=== PATIENT | male | born 1990 | race Caucasian/White ===

== ENCOUNTER 2024-03-02 10:58 | Emergency (ER) | payer BC, OTHER, SELFPAY ==
[2024-03-02 11:16] VITALS: BP 153/91; PULSE 85; RESP 18; TEMP 37; O2SAT 97; BMI 28.2
--- NOTE | 2024-03-02 11:22 | ED_ITS ---
HPI - Extremity Injury (Lower) <Mary London PA-C - Last Filed: 03/02/24 13:46> General Chief Complaint: Extremity Injury, Lower Stated Complaint: poss broken ankle per pt Time Seen by Provider: 03/02/24 11:09 Source: patient Mode of arrival: Ambulatory History of Present Illness HPI Narrative: This is a previously healthy 34-year-old male presenting with concern for possible left ankle fracture. 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 He states he felt and heard a pop and his partner who was 20 ft away states she also heard a pop. His partner states that he did a tuck and roll and did go down to the ground. He denies any other injuries from this but states since that time he has had pain with putting weight on the area. They elevated it and iced it for about 4 hours yesterday evening, in the middle of the night when he got up to use the bathroom he states he had a lot of pain with any weight-bearing and also felt nauseous. He has been wearing a lace-up ankle brace and staying off of it using a wheeled scooter. He has not taken anything for pain today, denies numbness or tingling of the ankle, denies any previous surgery or fracture at this site. Review of Systems <Mary London PA-C - Last Filed: 03/02/24 13:46> Review of Systems Narrative: See HPI Patient History <Mary London PA-C - Last Filed: 03/02/24 13:46> Social History Smoking Status: Never smoker Smoking Status: Never smoker alcohol intake frequency: a few times a week Alcohol type: beer Substance Use Type: does not use Exam <Mary London PA-C - Last Filed: 03/02/24 13:46> Narrative Exam Narrative: GENERAL: [34] year old patient appears stated age. Well-developed patient, in mild distress. HEAD: Atraumatic. Normocephalic. EYES: Pupils equal round and reactive. Extraocular motions intact. No scleral icterus. No injection or drainage. ENT: Nose without bleeding, purulent drainage. Throat without erythema, tonsillar hypertrophy or exudate. Airway patent. NECK: Trachea midline. Non tender RESPIRATORY: No increased work of breathing or respiratory distress EXTREMITIES: There is moderate swelling and tenderness of the lateral malleolus of the left ankle. Range of motion of the left ankle is reduced 2nd to pain and swelling. There is no tenderness of the proximal or mid fibula, there is no bony tenderness of the tarsals or metatarsals. Cap refill is less than 2 seconds, dorsalis pedis and posterior tibialis pulses intact 2+. No edema or joint tenderness. NEURO: AOx3. SKIN: No rash or erythema of visible areas Initial Vital Signs Initial Vital Signs: Vital Signs Temperature 98.6 F 03/02/24 11:16 Pulse Rate 85 03/02/24 11:16 Respiratory Rate 18 03/02/24 11:16 Blood Pressure 153/91 H 03/02/24 11:16 Pulse Oximetry 97 03/02/24 11:16 Oxygen Delivery Method Room Air 03/02/24 11:16 <Stephane Araya DO - Last Filed: 03/02/24 14:02> Initial Vital Signs Initial Vital Signs: Vital Signs Temperature 98.6 F 03/02/24 11:16 Pulse Rate 85 03/02/24 11:16 Respiratory Rate 18 03/02/24 11:16 Blood Pressure 153/91 H 03/02/24 11:16 Pulse Oximetry 97 03/02/24 11:16 Oxygen Delivery Method Room Air 03/02/24 11:16 Course <Mary London PA-C - Last Filed: 03/02/24 13:46> Orders Ordered: ED Orders 03/02/24 11:21 XR ankle LT min 3V Stat Discontinued Medications Ketorolac Tromethamine (Ketorolac 30 Mg/Ml Vial) 30 mg IM NOW ONE Stop: 03/02/24 12:23 Last Admin: 03/02/24 12:37 Dose: 30 mg Documented By: SB Vital Signs Vital signs: Vital Signs - 8 hr 03/02/24 11:16 Temperature 98.6 F Pulse Rate 85 Respiratory Rate 18 Blood Pressure 153/91 H Pulse Oximetry 97 Oxygen Delivery Method Room Air <DO John Forrest Last Filed: 03/02/24 14:02> Orders Ordered: ED Orders 03/02/24 11:21 XR ankle LT min 3V Stat Discontinued Medications Ketorolac Tromethamine (Ketorolac 30 Mg/Ml Vial) 30 mg IM NOW ONE Stop: 03/02/24 12:23 Last Admin: 03/02/24 12:37 Dose: 30 mg Documented By: JAMA Vital Signs Vital signs: Vital Signs - 8 hr 03/02/24 11:16 Temperature 98.6 F Pulse Rate 85 Respiratory Rate 18 Blood Pressure 153/91 H Pulse Oximetry 97 Oxygen Delivery Method Room Air MDM - Extremity Injury (Lower) <Mary London PA-C - Last Filed: 03/02/24 13:46> Differential Diagnosis Differential diagnosis: Likely ankle sprain and strain and ankle fracture Medical Records Attestation: I reviewed the patient's medical records. Imaging Data Extremity x-ray #1: My Impression: Agree with Radiology interpretation Radiologist's Impression: [address] [address] XRay Report Signed Patient: Leodan Magana MR#: [id number] : 1990 Acct:[id number] Age/Sex: 34 / M Date of Service: 03/02/24 Loc: ED Accession Number: [id number] Procedure: XR ankle LT min 3V Ordering Provider: Mary London P.A-C PROCEDURE: XR ANKLE LT MIN 3V INDICATIONS: fall TECHNIQUE: 3 views of the ankle were acquired. COMPARISON: None. FINDINGS: Bones: No fractures or dislocations. Ankle mortise is normally aligned. No suspicious bony lesions. Soft tissues: No tibiotalar joint effusion. Achilles tendon appears normal. Lateral soft tissue swelling. IMPRESSION: Lateral ankle sprain. No evidence acute bony abnormality. If clinical suspicion and/or symptoms persist, further assessment with repeat plain films, or advanced imaging (e.g., CT, MRI, or bone scan) may be helpful for further assessment. Dictated by: Arnel Pinto M.D. on 03/02/2024 at 12:08 Approved by: Arnel Pinto M.D. on 03/02/2024 at 12:10 [facility] Narrative Medical decision making narrative: Is a well appearing generally healthy 34-year-old male presenting with concern for possible left ankle fracture. Injury sustained last night he has been treating it appropriately with rest ice compression and elevation but has persistent pain with any ambulation or pressure and swelling and tenderness of the lateral malleolus. X-rays are obtained further evaluation. They show no evidence of fracture. Based on exam he does have a sprain likely ATFL. He has crutches at home and is provided with a walking boot today as well as Toradol IM. He is advised to be nonweightbearing for the next 7-10 days up to 3 weeks depending on how his pain is doing continue with rest ice compression elevation, he does plan to see physical therapy. Return precautions provided, follow-up plan discussed, all questions answered. Discharge Plan Departure Patient Disposition: Home Clinical Impression: Ankle sprain and strain Instructions: DI for Ankle Sprain Activity Restrictions/Additional Instructions: *You have been diagnosed with [ankle sprain] *What to do: *Please continue to take your regular medications as directed. [ ] New medication prescriptions sent to your pharmacy: [ ] [ ] New medication written as a paper prescription [X ] No new medications given *Please follow up with your primary care provider in 2-3 days, call for an appointment. Let them know you were seen in the Emergency Department and that we ask that you be seen in follow up. We will electronically transmit a record of today's note if your PCP is in our system. X-rays today show no fracture, your exam and x-rays are consistent with a sprain, continue with rest ice compression and elevation. You should be nonweightbearing on this foot as much as possible for the next 7-10 days, can take up to 3 weeks for a sprain to fully heal even if you are treating it with care. It is reasonable to follow up with PT as you discussed, you can also follow up with your primary care provider for recheck. We have provided you with a supportive orthopedic boot today and you already have crutches of your own. We did give you a shot of Toradol today in the emerg ency department moving forward recommend alternating Tylenol/acetaminophen and ibuprofen for pain as needed it is okay to ice it on and off for the next 24 hours or so after that this may be less helpful. *If you do not have a primary care provider please contact the [facility] Resource line at [phone]. They will ask some questions about your medical history and help get you set up with a doctor in the community. *Return to Emergency Department if you should have any new, worsening or concerning symptoms, such as [fever greater than 101 F, shaking chills, worsening pain, persistent vomiting or other bothersome symptoms] Stand Alone Forms: Patient Portal/API ED Sign-out <Stephane Araya, DO - Last Filed: 03/02/24 14:02> Cosign ED Attending Cosignature Attestation: Dr Araya Co-Sign Statement: I was available for consultation during this patient's emergency department visit. This chart is signed by myself for administrative purposes only. I did not have direct contact with this patient during this visit. They were seen independently by the APC.
[2024-03-02] MEDS: KETOROLAC 30 MG/ML VIAL IM (12:37)
== END 2024-03-02 12:42 | disposition home or self-care (01) ==
PROVIDERS: Emergency Provider Student in an Organized Health Care Education/Training Program
DX: S93.402A Sprain of unspecified ligament of left ankle, initial encounter (principal); S96.912A Strain of unspecified muscle and tendon at ankle and foot level, left foot, initial encounter; W01.0XXA Fall on same level from slipping, tripping and stumbling without subsequent striking against object, initial encounter
CPT/HCPCS: 73610; 96372; 99283; J1885